=== PATIENT | female | born 1935 | race Caucasian/White ===

== ENCOUNTER → 2017-09-23 | Outpatient (CLI) | payer MEDICARE ==
--- NOTE | 2017-09-25 15:17 | PE ---
EXAMINATION TYPE: PET CT fusion whole body DATE OF EXAM: 09/23/2017 COMPARISON: NONE HISTORY: Melanoma. Initial examination. TECHNIQUE: Following the intravenous administration of 9.67 mCi of F-18 FDG, whole body images are p erformed from the skull base to the midthigh. Images are reviewed on the computer in the coronal, ax ial, and sagittal planes. Reconstructed rotating images are created on independent workstation and r eviewed on the computer. A localization and attenuation correction CT is performed in conjunction w ith the PET scan. SCAN: Initial FINDINGS: Mediastinal background: 2.65. Abdominal background: 4.70. SKULL BASE AND NECK: No suspicious hypermetabolic activity. CHEST, MEDIASTINUM, AND HILAR REGION: No suspicious hypermetabolic activity. ABDOMEN AND PELVIS: No suspicious hypermetabolic activity. LOWER EXTREMITY/ OSSEOUS STRUCTURES: Within the left lower extremity superficially above the deep fas cial planes there is a focal amorphous area of uptake with a maximum SUV of 1.53. This is slightly ab ove other areas of probable subcutaneous edema with maximum SUVs measuring up to 1.24. Approximately 9 cm below the left tibial plateau there is a hypermetabolic focal area of activity juan a ng the skin surface of the anterolateral left lower extremity with a protuberant skin lesion measurin g 2.8 x 1.0 cm on series 8 image 118 with a maximum SUV of 8.57 compatible with the patient's known p rimary melanoma. There is diffuse radiotracer uptake activity within the left knee with a maximum SUV of 2.91 and on t he right with a maximum SUV of 2.21, below abdominal background and similar to mediastinal background favored to represent extensive arthropathy. Bone marrow within the distal femurs measures 1.68 and 2 .26 on the right and left respectively. No hypermetabolic activity. OTHER CT: There are extensive degenerative changes of the osseous structures with anterior cervical f usion device noted and exaggerated thoracic kyphosis. Paranasal sinuses remain well aerated. Extensiv e glenohumeral arthropathy is present. No suspicious osseous lesions are present. Calcified right upper lobe pulmonary granuloma is benign. Bibasilar subsegmental dependent atelectasi s and mild pulmonary vascular engorgement are noted. Benign mediastinal calcified lymph nodes are als o seen. No mediastinal adenopathy. Minimal coronary artery calcifications are present. Ascending thor acic aorta is upper limits of normal size measuring 3.9 cm. No cardiomegaly or pericardial effusion. No pleural effusion. Small hiatal hernia is present. The liver is slightly suboptimally visualized due to spray artifact from the patient's arms. There ap pears to be a portion of the portal vein. Gallbladder appears unremarkable. Calcified granulomas are seen of the hepatic parenchyma also benign. The spleen is enlarged measuring 14.2 cm in anterior post erior dimension. Probable splenule is seen anterior to the muscogee spleen on series 3 image 138. There is a large left renal fluid attenuated cyst measuring up to 11.8 x 11.7 cm. Smaller 3.5 cm left lowe r pole renal cyst is seen in addition to an exophytic 1.4 cm left renal lesion on series 3 image 174 that does not meet criteria for simple cyst. Right upper pole exophytic cyst measures 2.6 cm. No neph rolithiasis or hydronephrosis of either kidney. No gross evidence of adenopathy within the abdomen or pelvis. No superficial inguinal adenopathy is s een. The largest lymph node is seen on the left in the superficial inguinal region measuring 9 mm in short axis. Colonic diverticulosis is present without evidence of Pericolonic fat stranding. No dilated bowel. Extensive degenerative changes of the femoral acetabular joints are present, right greater than left. Prior healed right femoral neck fracture is present. IMPRESSION: 1. Focal hypermetabolic activity corresponding to a left lower extremity subcutaneous lesion measurin g 2.8 x 1.0 cm a proximally 9 cm below the left tibial plateau compatible with the patient's known pr imary melanoma. No findings to suspect metastatic disease. Extensive bilateral subcutaneous edema is identified with slight FDG avidity, likely inflammatory, as this does not approach mediastinal backgr ound. 2. Extensive bilateral arthropathy of the knees with nonhypermetabolic uptake. 3. Large left renal cyst measuring up to 11.8 cm with multiple other smaller renal cysts and addition al left lower pole renal lesion measuring 1.4 cm it does not meet criteria for a simple cyst and shou ld be further evaluated with ultrasound.
== END | disposition home or self-care (01) ==
LOC: RADPETMAIN 11:37
PROVIDERS: ATTEND Radiology Radiation Oncology
DX: C43.71 Malignant melanoma of right lower limb, including hip (principal); N28.1 Cyst of kidney, acquired
CPT/HCPCS: 78816; A9552

== ENCOUNTER → 2017-10-13 | Outpatient (CLI) | payer MEDICARE ==
--- NOTE | 2017-10-13 09:44 | MR ---
EXAMINATION TYPE: MR brain wo/w con DATE OF EXAM: 10/13/2017 COMPARISON: NONE HISTORY: Malignant melanoma of left lower limb TECHNIQUE: Multiplanar, multisequence images of the brain and brainstem is performed without and with IV contras t, utilizing 10 mL intravenous Gadavist . FINDINGS: Diffusion weighted images demonstrate no evidence of a recent infarct or other diffusion ab normality. There are numerous areas of abnormal signal throughout the white matter bilaterally as well as conflu ent areas of abnormal signal. Findings are nonspecific but most typical remote microvascular ischemia . Areas of abnormal signal in the nick are suggestive of remote ischemia. Tiny areas of abnormal signal the basal ganglia likely related to remote lacunar infarctions. Midline structures demonstrate normal morphology. The craniocervical junction appears within normal limits. Post contrast images demonstrate no abnormal enhancement. The dural venous sinuses appear p atent. Changes of chronic sinusitis noted. IMPRESSION: 1. Degenerative and diffuse nonspecific white matter changes most typical remote ischemia. 2. No enhancing mass or mass effect. 3. There is nodular prominence of the right MCA bifurcation highly suggestive of a small aneurysm. Th is could be correlated with MRA [place] of [place].
== END | disposition home or self-care (01) ==
LOC: RADMRIMAIN 07:22
PROVIDERS: ATTEND Radiology Radiation Oncology
DX: C43.72 Malignant melanoma of left lower limb, including hip (principal); C79.31 Secondary malignant neoplasm of brain; R90.89 Other abnormal findings on diagnostic imaging of central nervous system
CPT/HCPCS: 70553; A9581

== ENCOUNTER → 2018-05-12 | Outpatient (CLI) | payer MEDICARE ==
--- NOTE | 2018-05-13 11:50 | PE ---
Nuclear medicine PET/CT HISTORY: Melanoma left leg, subsequent Patient received 11.8 mCi F-18 FDG intravenously and delayed whole-body scanning was performed. Local ization and attenuation correction CT scan was performed. Exam is correlated to prior nuclear medicin e PET/CT 09/23/2017. Skull and neck: Unremarkable. Muscular uptake is noted in the neck is physiologic. Uptake at the leve l of the vocal cords is likely normal. CHEST: No mediastinal, axillary, or hilar adenopathy. No suspicious lung mass or hypermetabolic uptak e. Granuloma present in the right upper lobe. Calcified mediastinal and right hilar nodes are present . Heart is enlarged. Pulmonary artery is enlarged, correlate for possible pulmonary artery hypertensi on. 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 C oronary artery calcification is minimal. Small hiatal hernia again seen. Abdomen pelvis: Large left renal cyst is present displacing the left kidney anteriorly, the cyst is 1 3 cm in size similar to prior, there is a smaller hypodense focus at the lower pole the right kidney measuring 3.2 cm, posterior right renal cyst also similar to prior. Additional lower pole left renal lesion not clearly cystic is stable. The spleen is enlarged and calcification within the liver is aga in seen, common bile duct appears prominently. Diverticular changes associated with the sigmoid colon . No retroperitoneal adenopathy. Aorta shows atheromatous change. No ascites. No inguinal adenopathy. No suspicious hypermetabolic uptake. Osseous structures: Marked arthropathy noted in the upper extremities, hips, degenerative disc change and facet arthropathy present within the visualized spine. Arthropathy suspected within the hands, l eft wrist. Lower extremities show arthropathy in the knees. There are subcutaneous edema changes with skin thick ening. Physiologic muscular activity suspected within the feet. The previously identified hypermetabo lic uptake at the left leg is no longer seen. IMPRESSION: Interval resolution of hypermetabolic uptake in the area of patient's known left lower ex tremity melanoma. There may be chronic venous stasis disease, difficult to exclude lower limb celluli tis, correlate.
== END | disposition home or self-care (01) ==
LOC: RADPETMAIN 09:31
PROVIDERS: ATTEND Internal Medicine Hematology & Oncology
DX: C43.72 Malignant melanoma of left lower limb, including hip (principal)
CPT/HCPCS: 78816; A9552